=== PATIENT | male | born 1955 | race Two or more races ===

== ENCOUNTER 2017-02-07 13:24 | Outpatient (CLI) | payer BC ==
[~2017-02-07 13:24] MED LIST: ATOR40TA PO; METO25TA20 PO
== END 2017-02-07 23:59 | disposition home or self-care (01) ==
LOC: CARD 13:24
PROVIDERS: ATTEND Legal Medicine
DX: I65.23 Occlusion and stenosis of bilateral carotid arteries (principal)
CPT/HCPCS: 93880-TC

== ENCOUNTER 2017-03-28 09:01 | Outpatient (CLI) | payer BC ==
[2017-03-28] MEDS ORDERED: IOHEXOL-350 100 ML VIAL IV ONE (09:26)
[2017-03-28] MEDS ORDERED: CT SWABBABLE VALVE TRANS SET 1 EA INFUS.SET MC ONE (09:26)
[2017-03-28] MEDS ORDERED: IV NS 0.9% 500 ML IV ONE (09:26)
== END 2017-03-28 23:59 | disposition home or self-care (01) ==
LOC: CT 09:01
PROVIDERS: ATTEND Surgery Vascular Surgery
DX: I65.22 Occlusion and stenosis of left carotid artery (principal); E04.1 Nontoxic single thyroid nodule; I67.82 Cerebral ischemia; M50.30 Other cervical disc degeneration, unspecified cervical region; M48.02 Spinal stenosis, cervical region
CPT/HCPCS: 70496; 70498; J7040; Q9967

== ENCOUNTER 2017-06-01 14:35 | Outpatient (CLI) | payer BC ==
[2017-06-01 14:57] LABS: BASOPHILS # (AUTO) 0.1 /CMM (0.0-0.2); BASOPHILS % (AUTO) 0.8 % (0.0-2.0); EOSINOPHILS % (AUTO) 4.8 % (0.0-6.0); HEMATOCRIT 37 % (39-51); HEMOGLOBIN 12.7 g/dL (13.5-17.5); LYMPHOCYTES # (AUTO) 1.5 /CMM (0.8-4.8); LYMPHOCYTES % (AUTO) 23.8 % (20.0-44.0); MEAN CORPUSCULAR HGB CONC 34 g/dl (31.0-36.0); MEAN CORPUSCULAR VOLUME 84 fL (80-96); MONOCYTES # (AUTO) 0.5 /CMM (0.1-1.30); MONOCYTES % (AUTO) 8.2 % (2.0-12.0); NEUTROPHILS % (AUTO) 62.4 % (43.0-81.0); PLATELET COUNT (AUTO) 196 /CMM (150-450); RED BLOOD CELL COUNT(AUTO) 4.45 MIL/uL (4.5-6.0); WHITE BLOOD COUNT (AUTO) 6.4 K/uL (4.3-11.0)
[2017-06-01 14:59] LABS: APPEARANCE,URINE CLEAR (CLEAR); BILIRUBIN,URINE NEGATIVE (NEGATIVE); BLOOD, URINE NEGATIVE Ery/uL (NEGATIVE); COLOR,URINE YELLOW (YELLOW); KETONES,URINE NEGATIVE (NEGATIVE); LEUKOCYTE ESTERASE ,URINE NEGATIVE (NEGATIVE); NITRITE, URINE NEGATIVE (NEGATIVE); PH,URINE 6.5 (5.0-8.0); PROTEIN,URINE NEGATIVE (NEGATIVE); UGLUCOSE NEGATIVE (NEGATIVE); UROBILINOGEN,URINE 0.2 EU/dL (0.2)
[2017-06-01 15:12] LABS: CALCIUM, SERUM 8.3 mg/dL (8.5-10.1); CREATININE 0.9 mg/dL (0.6-1.3); POTASSIUM 4.1 mmol/L (3.5-5.1)
[2017-09-25] MEDS ORDERED: AMLO5TAB7 PO (08:42)
== END 2017-06-01 23:59 | disposition home or self-care (01) ==
LOC: LAB 14:35
PROVIDERS: ATTEND Legal Medicine
DX: Z01.818 Encounter for other preprocedural examination (principal); M47.894 Other spondylosis, thoracic region
CPT/HCPCS: 36415; 71046; 80048-TC; 81000-TC; 85025-TC

== ENCOUNTER 2017-06-08 05:48 | Inpatient (IN) | payer BC ==
[2017-06-08] VITALS (17 sets, daily range): BP systolic 111–188; BP diastolic 50–90
[~2017-06-08] VITALS: Ht 165.1 cm; Wt 64.4 kg
[2017-06-08] MEDS ORDERED: ANESTHESIA TRAY IN PYXIS 1 EA TRAY MC ONE (06:18)
--- NOTE | 2017-06-08 06:30 | NUR ---
PLZ SEE PRE OP ADMISSION DATA BASE ASSESMENT FOR MORE INFORMATION
[2017-06-08] MEDS ORDERED: NICARDIPINE IN DEXTROSE,ISO-OS 0 ML IV ONE (06:39)
[2017-06-08] MEDS ORDERED: MIDAZOLAM HCL 2 MG/2ML VIAL ONE (06:39)
[2017-06-08] MEDS ORDERED: FENTANYL PF 100MCG/2ML AMPUL ONE (06:39)
[2017-06-08] MEDS ORDERED: ROCURONIUM BROMIDE 50 MG/5 ML ONE ×2 (06:39→08:00)
[2017-06-08] MEDS ORDERED: HEPARIN SODIUM, PORCINE 1,000 UNIT/ML VIAL ONE (06:50)
[2017-06-08] MEDS ORDERED: BUPIVACAINE 0.25% 75 MG/30 ML VIAL ONE (06:50)
[2017-06-08] MEDS ORDERED: LIDOCAINE 1% INJ 50 ML MDV IJ ONE (06:50)
[2017-06-08] MEDS ORDERED: HEMOSTATIC MATRIX 10 ML 1 EACH PAD MC ONE (06:52)
[2017-06-08] MEDS ORDERED: CELLULOSE,OXIDIZED 1 EA PACK MC ONE ×2 (06:52→09:55)
[2017-06-08 07:12] LABS: INR 1.1 (0.87-1.13)
[2017-06-08] MEDS ORDERED: METF-440 PO (07:38)
[2017-06-08] MEDS ORDERED: ASPI-605 PO (07:38)
[2017-06-08] MEDS ORDERED: BACITRACIN 50000 UNITS/VIAL ONE (08:42)
[2017-06-08] MEDS ORDERED: THROMBIN (BOVINE) 5,000 UNITS VIAL TP ONE (09:49)
[2017-06-08] MEDS ORDERED: GELATIN SPONGE,ABSORBABLE 1 EA SPONGE TP ONE (09:50)
[2017-06-08] MEDS ORDERED: DEXAMETHASONE SOD PHOSPHATE 4 MG/ML VIAL ONE (11:01)
[2017-06-08] MEDS ORDERED: hydrALAZINE HCL IV 20 MG VIAL ONE (11:11)
[2017-06-08 11:40] LABS: BASOPHILS % (AUTO) 0.2 % (0.0-2.0); EOSINOPHILS % (AUTO) 0.5 % (0.0-6.0); HEMATOCRIT 36 % (39-51); HEMOGLOBIN 12.2 g/dL (13.5-17.5); LYMPHOCYTES # (AUTO) 0.7 /CMM (0.8-4.8); LYMPHOCYTES % (AUTO) 7.7 % (20.0-44.0); MEAN CORPUSCULAR HGB CONC 33 g/dl (31.0-36.0); MEAN CORPUSCULAR VOLUME 83 fL (80-96); MONOCYTES # (AUTO) 0.1 /CMM (0.1-1.30); MONOCYTES % (AUTO) 0.8 % (2.0-12.0); NEUTROPHILS % (AUTO) 90.8 % (43.0-81.0); PLATELET COUNT (AUTO) 186 /CMM (150-450); RDW COEFFICIENT OF VARIATION 14.3 (11.5-15.0); RED BLOOD CELL COUNT(AUTO) 4.37 MIL/uL (4.5-6.0); WHITE BLOOD COUNT (AUTO) 8.8 K/uL (4.3-11.0)
--- NOTE | 2017-06-08 11:45 | NUR ---
ICU/RN: Pt received from PACU, A&Ox4, breathing even and unlabored, no distress noted, no neuro deficits noted. Able to follow commands and demonstrates equal bilat upper and lower ext strength. RYLIE drain noted on L neck with serosanguineous output set to suction. R Radial A-line noted, zeroed and calibrated with good waveform noted. New IV HL inserted R Hand #20 x1 attempt. Pt c/o mild DOTY with elevated BP. Will manage with prn meds accordingly. Pt oriented to unit and POC, verbalized understanding. Will cont to monitor pt
[2017-06-08 11:51] LABS: CALCIUM, SERUM 7.7 mg/dL (8.5-10.1); CREATININE 0.8 mg/dL (0.6-1.3); MAGNESIUM 1.5 mg/dL (1.8-2.4); POTASSIUM 3.7 mmol/L (3.5-5.1)
[2017-06-08] MEDS: VALSARTAN 80 MG TABLET PO SCH (12:25)
[2017-06-08] MEDS ORDERED: ONDANSETRON HCL/PF 4 MG/2 ML VIAL IVP PRN (12:30)
[2017-06-08] MEDS ORDERED: hydrALAZINE HCL IV 20 MG VIAL IV PRN (12:30)
--- NOTE | 2017-06-08 12:30 | NUR ---
ICU/RN: S/B Dr Lane, with new orders noted and carried out. Pt voided 100cc dark yellow urine using urinal. Denies any discomfort.
[2017-06-08] MEDS ORDERED: DOCUSATE SODIUM 100 MG CAPSULE PO PRN (13:00)
[2017-06-08] MEDS ORDERED: ACETAMINOPHEN 325 MG TABLET PO PRN (13:00)
[2017-06-08] MEDS ORDERED: IV NS 0.9% 1,000 ML IV PRN (13:00)
[2017-06-08] MEDS ORDERED: INSULIN REGULAR, HUMAN 100 UNIT/ML 3 ML VIAL SQ PRN (13:30)
[2017-06-08] MEDS ORDERED: DEXTROSE 50%-WATER 50 ML DISP.SYRIN IV PRN (13:30)
[2017-06-08] MEDS: Magnesium 1GM/D5W 100ML PREMIX 100 ML IV SCH ×3 (14:16→16:59)
[2017-06-08] MEDS ORDERED: FENTANYL PF 100MCG/2ML AMPUL IV PRN (14:30)
[2017-06-08] MEDS: ASPIRIN 81 MG TAB.CHEW PO SCH (15:40)
[2017-06-08] MEDS: CEFAZOLIN IV SCH ×2 (16:12→23:32)
[2017-06-08] MEDS: METFORMIN 500 MG TABLET PO SCH (16:12)
[2017-06-08] MEDS: D5W IV SCH ×2 (16:12→23:32)
[2017-06-08] MEDS: BLOOD SUGAR DIAGNOSTIC 1 EACH STRIP IN SCH ×2 (17:14→21:46)
--- NOTE | 2017-06-08 17:20 | NUR ---
ICU/RN: Pt refused insulin SS coverage, per pt "I take Metformin at home. I can swallow the pills." Administered as ordered, pt swallowed meds without difficulty.
--- NOTE | 2017-06-08 19:30 | NUR ---
REAL ESTATE DIRECTOR: RECEIVED PT A/O X 3. ON S/P LT. CAROTID ENDARTERECTOMY. ON R/A WT NO ACUTE DISTRESS. NO C/O PAIN. LT. NECK DRESSING INTACT WT MINIMAL BLEED, RYLIE DRAIN IN PLACE WT SEROSANGUINEOUS DRAINAGE. SR ON REAGENT TENDER. ABLE TO VOID ON URINAL WT YELLOW COLORED URINE. A. LINE IN PLACE, LEVELED AND CALIBRATED WT POSITIONAL WAVEFORM. IV SITES SALINE LOCK WT NO S/S OF INFILTRATION. SON AT BEDSIDE. HOB AT 35 DEGREES. SAFETY PRECAUTION NOTED. WILL CONTINUE TO MONITOR.
[2017-06-08] MEDS: METOPROLOL TARTRATE 25 MG TABLET PO SCH (21:44)
[2017-06-09] VITALS (12 sets, daily range): BP systolic 110–160; BP diastolic 44–124
[2017-06-09] MEDS: HYDROCODONE/APAP 5/325MG 1 EACH TABLET PO PRN ×3 (02:12→14:12)
[2017-06-09 05:01] LABS: HEMATOCRIT 36 % (39-51); LYMPHOCYTES # (AUTO) 1.1 /CMM (0.8-4.8); LYMPHOCYTES % (AUTO) 6.7 % (20.0-44.0); MEAN CORPUSCULAR HGB CONC 34 g/dl (31.0-36.0); MEAN CORPUSCULAR VOLUME 84 fL (80-96); MONOCYTES # (AUTO) 1.3 /CMM (0.1-1.30); MONOCYTES % (AUTO) 7.6 % (2.0-12.0); NEUTROPHILS # (AUTO) 14.3 /CMM (1.8-8.9); NEUTROPHILS % (AUTO) 85.7 % (43.0-81.0); PLATELET COUNT (AUTO) 231 /CMM (150-450); RDW COEFFICIENT OF VARIATION 14.3 (11.5-15.0); RED BLOOD CELL COUNT(AUTO) 4.26 MIL/uL (4.5-6.0); WHITE BLOOD COUNT (AUTO) 16.7 K/uL (4.3-11.0)
[2017-06-09 05:08] LABS: CALCIUM, SERUM 7.8 mg/dL (8.5-10.1); CREATININE 0.9 mg/dL (0.6-1.3); MAGNESIUM 2.3 mg/dL (1.8-2.4); PHOSPHORUS 2.8 mg/dL (2.5-4.9); POTASSIUM 4.3 mmol/L (3.5-5.1)
[2017-06-09 05:12] LABS: INR 1.01 (0.87-1.13)
[2017-06-09] MEDS ORDERED: ENOXAPARIN SODIUM 40 MG/0.4 ML DISP.SYRIN SQ SCH (06:00)
--- NOTE | 2017-06-09 06:15 | NUR ---
WAISTBAND SETTER: NO SIGNIFICANT AMY DURING THE SHIFT. REMAINED A/O X 3. TOTAL RYLIE DRAIN [id number]. VS WITHIN HIS BASELINE. SAFETY PRECAUTION NOTED AT ALL TIMES.
[2017-06-09] MEDS: BLOOD SUGAR DIAGNOSTIC 1 EACH STRIP IN SCH ×3 (07:45→16:45)
[2017-06-09] MEDS: VALSARTAN 80 MG TABLET PO SCH (08:01)
[2017-06-09] MEDS: ASPIRIN 81 MG TAB.CHEW PO SCH (08:01)
[2017-06-09] MEDS: METOPROLOL TARTRATE 25 MG TABLET PO SCH (08:01)
[2017-06-09] MEDS: METFORMIN 500 MG TABLET PO SCH ×2 (08:02→16:45)
--- NOTE | 2017-06-09 08:05 | NUR ---
ICU/RN: Pt refused insulin sliding scale coverage, per pt "I take Metformin at home. I can swallow the pills." Administered as ordered, pt swallowed medications without difficulty.
--- NOTE | 2017-06-09 08:10 | NUR ---
ICU/RN - Notes Pt complains of left sided neck pain (surgical site) on pain scale 5 out of 10. Administered [place] 5/325 1 tab as ordered for PRN pain. Comfort measures in place. Will reassess pain accordingly.
[2017-06-09] MEDS ORDERED: ATORVASTATIN 40 MG TABLET PO SCH ×2 (09:00→22:00)
--- NOTE | 2017-06-09 10:51 | NUR ---
ICU/RN - Notes Pt cleared for Med Surg status per Dr Burton. A-line discontinued as ordered.
--- NOTE | 2017-06-09 11:10 | NUR ---
ICU/RN - Notes Pt transferred to [facility] 206-2 via wheelchair in stable condition. Report given to SHARMIN Villegas for continuity of care. All belongings taken with pt. Tremaine, son at bedside.
--- NOTE | 2017-06-09 11:15 | NUR ---
PATIENT ARRIVED TO UNIT AND PLACED IN ROOM 206-2. COURTNEY LI AT BEDSIDE
--- NOTE | 2017-06-09 11:50 | NUR ---
BLOOD SUGAR 138. PATIENT REFUSED INSULIN
--- NOTE | 2017-06-09 12:15 | NUR ---
PATHOLOGICAL TECHNICIAN NOTES PATIENT ARRIVED TO UNIT A WHEELCHAIR. NO SIGNS AND SYMPTOMS OF DISTRESS. DENIED PAIN. VITAL SIGNS WITHIN ACCEPTABLE LEVELS: BP 139/72, HR 59, O2 97%, TEMP 97.5 WILL CONTINUE TO MONITOR AND ASSESS PATIENT
--- NOTE | 2017-06-09 18:27 | NUR ---
FOAM MOLDER NOTES PATIENT IS DISCHARGED IN STABLE CONDITION. ALL NEEDS WERE MET. EXITCARE PROVIDED TO THE PATIENT. IV LINE WAS REMOVED. ID BAND WAS REMOVED. PATIENT HAS ALL BELONGINGS. PATIENT WAS ESCORTED OUT OF THE HOSPITAL BY RONAN CHURCHILL VIA WHEELCHAIR. PATIENT LEFT WITH SON GUILLERMO IN A PRIVATE CAR DISCHARGED HOME WITH SELF CARE. PRESCRIPTION GIVEN TO PATIENT. PATIENT ADVISED TO FOLLOW UP WITH DR. BOWSER IN 2 WEEKS AND TO FOLLOW UP WITH PRIMARY CARE PHYSICIAN WITHIN 2 WEEKS.
[2017-09-25] MEDS ORDERED: AMLO5TAB7 PO (08:42)
== END 2017-06-09 17:45 | disposition home or self-care (01) | DRG 39 ==
LOC: DS 05:48 → ICU 12:15 → MEDSG2 06-09 11:10
PROVIDERS: ADMIT Surgery Vascular Surgery; ATTEND Surgery Vascular Surgery
PROC: 03CL0ZZ Extirpation of Matter from Left Internal Carotid Artery, Open Approach (ICD-10-PCS; principal; 2017-06-08 07:00)
PROC: 03UL0JZ Supplement Left Internal Carotid Artery with Synthetic Substitute, Open Approach (ICD-10-PCS; principal; 2017-06-08 07:00)
PROC: 03HB33Z Insertion of Infusion Device into Right Radial Artery, Percutaneous Approach (ICD-10-PCS; principal; 2017-06-08 07:00)
DX: I65.22 Occlusion and stenosis of left carotid artery (principal); E11.9 Type 2 diabetes mellitus without complications; E78.5 Hyperlipidemia, unspecified; I10 Essential (primary) hypertension; Z86.73 Personal history of transient ischemic attack (TIA), and cerebral infarction without residual deficits; Z79.84 Long term (current) use of oral hypoglycemic drugs
CPT/HCPCS: 36415; 80048-TC; 82962-TC; 83735-TC; 84100-TC; 85025-TC; 85610-TC; 85730-TC; 87081-TC; 88304-TC; 88305-TC; 88311-TC; A6253; A6402; A6403; C1751; C1769; J0360; J0690; J1100; J1644; J1650; J1815; J2250; J2405; J2704; J2710; J3010; J3475; J3490; J7030; J7060; Z7610

== ENCOUNTER 2017-07-06 09:15 | Outpatient (CLI) | payer BC ==
[~2017-07-06 09:15] MED LIST changes: +ASPI-605 PO; +METF-440 PO
[2017-07-06] MEDS ORDERED: BARIUM SULFATE 98% 135 ML SUSP.RECON PO ONE (09:28)
[2017-07-06 10:31] LABS: APPEARANCE,URINE CLEAR (CLEAR); BILIRUBIN,URINE NEGATIVE (NEGATIVE); BLOOD, URINE TRACE-INTA Ery/uL (NEGATIVE); COLOR,URINE YELLOW (YELLOW); KETONES,URINE NEGATIVE (NEGATIVE); LEUKOCYTE ESTERASE ,URINE NEGATIVE (NEGATIVE); NITRITE, URINE NEGATIVE (NEGATIVE); PH,URINE 5.5 (5.0-8.0); PROTEIN,URINE NEGATIVE (NEGATIVE); UGLUCOSE NEGATIVE (NEGATIVE); UROBILINOGEN,URINE 0.2 EU/dL (0.2)
[2017-07-06 10:33] LABS: BACTERIA,URINE None seen /HPF (None Seen); RBC,URINE 0-2 /HPF (0-2); WBC,URINE NONE SEEN /HPF (0-3)
[2017-07-06 10:34] LABS: SQUAMOUS EPITHELIAL CELL,UR None Seen /HPF (None Seen)
[2017-07-06 10:51] LABS: ALBUMIN 3.9 g/dL (3.4-5.0); BILIRUBIN,TOTAL 0.7 mg/dL (0.2-1.0); CALCIUM, SERUM 9.2 mg/dL (8.5-10.1); CREATININE 0.9 mg/dL (0.6-1.3); POTASSIUM 4.1 mmol/L (3.5-5.1); TOTAL PROTEIN, SERUM 7.9 g/dL (6.4-8.2)
[2017-07-06 11:01] LABS: THYROID STIMULATING HORMONE 2.012 uIU/mL (0.358-3.74); URIC ACID 4.6 mg/dL (2.6-7.2)
[2017-07-06 13:22] LABS: BASOPHILS % (AUTO) 0.5 % (0.0-2.0); EOSINOPHILS % (AUTO) 4.9 % (0.0-6.0); HEMATOCRIT 37 % (39-51); HEMOGLOBIN 12.1 g/dL (13.5-17.5); LYMPHOCYTES % (AUTO) 18.3 % (20.0-44.0); MEAN CORPUSCULAR HGB CONC 33 g/dl (31.0-36.0); MEAN CORPUSCULAR VOLUME 84 fL (80-96); MONOCYTES # (AUTO) 0.4 /CMM (0.1-1.30); MONOCYTES % (AUTO) 6.9 % (2.0-12.0); NEUTROPHILS # (AUTO) 3.8 /CMM (1.8-8.9); NEUTROPHILS % (AUTO) 69.4 % (43.0-81.0); PLATELET COUNT (AUTO) 247 /CMM (150-450); RDW COEFFICIENT OF VARIATION 14.6 (11.5-15.0); RED BLOOD CELL COUNT(AUTO) 4.34 MIL/uL (4.5-6.0); WHITE BLOOD COUNT (AUTO) 5.5 K/uL (4.3-11.0)
[2017-07-09 11:44] LABS: MAGNESIUM 2.1 mg/dL (1.8-2.4); PHOSPHORUS 3.4 mg/dL (2.5-4.9)
[2017-09-25] MEDS ORDERED: AMLO5TAB7 PO (08:42)
== END 2017-07-06 23:59 | disposition home or self-care (01) ==
LOC: RAD 09:15
PROVIDERS: ATTEND Legal Medicine
DX: I10 Essential (primary) hypertension (principal); E11.9 Type 2 diabetes mellitus without complications; R06.02 Shortness of breath; R13.10 Dysphagia, unspecified
CPT/HCPCS: 36415; 71046; 74230-TC; 80053-TC; 80061-TC; 81000-TC; 83735-TC; 84100-TC; 84443-TC; 84550-TC; 85025-TC

== ENCOUNTER 2017-09-25 06:20 | Emergency (ER) | payer BC ==
[~2017-09-25] VITALS: Ht 165.1 cm; Wt 61.7 kg
[~2017-09-25 06:20] MED LIST changes: -METF-440 PO; +METF500T6 PO
--- NOTE | 2017-09-25 06:36 | NUR ---
PT BB COWORKERS C/C OF NOSEBLEED AT 0545. PT IS AAOX4. PT DENIES HAVING ANY PAIN. PT DENIES N/V, -DIZZINESS,-BLURRED VISSION. PT ABLE TO MOVE ALL EXTREMITIES FREELY AND STATES EQUAL SENSATIONS BILATERALLY. SKIN WNL. RESP EVEN AND UNLABORED. NO S/S OF ACUTE DISTRESS NOTED. PT PLACED ON PYTHON WEB DEVELOPER AND POX. PT SAFETY AND COMFORT MEASURES IN PLACE. AWAITING MD FOR EVAL. PT'S COWORKERS BEDSIDE.
--- NOTE | 2017-09-25 07:15 | NUR ---
RECIEVED PT TO ED BED 05. A/OX3. NAD VSS RR EVEN AND UNLABORED. VSS WILL CONT TO MONITOR
[2017-09-25 07:24] LABS: BASOPHILS % (AUTO) 0.7 % (0.0-2.0); EOSINOPHILS % (AUTO) 4.3 % (0.0-6.0); HEMATOCRIT 40 % (39-51); HEMOGLOBIN 13.1 g/dL (13.5-17.5); LYMPHOCYTES % (AUTO) 17.8 % (20.0-44.0); MEAN CORPUSCULAR HEMOGLOBIN 28 PG (26.0-33.0); MEAN CORPUSCULAR HGB CONC 32 g/dl (31.0-36.0); MEAN CORPUSCULAR VOLUME 85 fL (80-96); MONOCYTES # (AUTO) 0.4 /CMM (0.1-1.30); MONOCYTES % (AUTO) 8.1 % (2.0-12.0); NEUTROPHILS # (AUTO) 3.8 /CMM (1.8-8.9); NEUTROPHILS % (AUTO) 69.1 % (43.0-81.0); PLATELET COUNT (AUTO) 222 /CMM (150-450); RDW COEFFICIENT OF VARIATION 16.9 (11.5-15.0); RED BLOOD CELL COUNT(AUTO) 4.75 MIL/uL (4.5-6.0); WHITE BLOOD COUNT (AUTO) 5.4 K/uL (4.3-11.0)
[2017-09-25 07:35] LABS: CALCIUM, SERUM 9.3 mg/dL (8.5-10.1); CARBON DIOXIDE 25 mmol/L (21-32); CHLORIDE 105 mmol/L (98-107); GLUCOSE 138 mg/dL (74-106); SODIUM SERUM 140 mmol/L (136-145); UREA NITROGEN, BLOOD 18 mg/dL (7-18)
[2017-09-25 07:39] LABS: INR 0.97 (0.87-1.13)
[2017-09-25 07:40] LABS: ALANINE AMINOTRANSFERASE 59 U/L (12-78); ALBUMIN 4.1 g/dL (3.4-5.0); ALKALINE PHOSPHATASE 115 U/L (46-116); ASPARTATE AMINOTRANSFERASE 53 U/L (15-37); BILIRUBIN,DIRECT 0.1 mg/dL (0.0-0.2); BILIRUBIN,TOTAL 0.8 mg/dL (0.2-1.0); TOTAL PROTEIN, SERUM 8.5 g/dL (6.4-8.2)
[2017-09-25 07:43] LABS: TROPONIN I < 0.017 ng/mL (0.00-0.056)
[2017-09-25] MEDS ORDERED: IOHEXOL-350 100 ML VIAL IV ONE (07:54)
[2017-09-25] MEDS ORDERED: CT SWABBABLE VALVE TRANS SET 1 EA INFUS.SET MC ONE (07:54)
[2017-09-25] MEDS ORDERED: IV NS 0.9% 250 ML IV ONE (07:54)
--- NOTE | 2017-09-25 08:05 | NUR ---
PT TAKEN TO CT SCAN
[2017-09-25 08:22] LABS: CHOLESTEROL 81 mg/dL (<200); HDL CHOLESTEROL 37 mg/dL (40-60); LDL 38 mg/dL (0-99); TRIGLYCERIDES 74 mg/dL (30-150)
[2017-09-25] MEDS ORDERED: METO-357 PO (08:42)
[2017-09-25] MEDS ORDERED: AMLO5TAB2 PO (08:42)
[2017-09-25] MEDS ORDERED: CLOP75TA15 PO (08:42)
[2017-09-25] MEDS ORDERED: LISI40TA4 PO (08:42)
--- NOTE | 2017-09-25 09:32 | NUR ---
PAGED DR COCHRAN
--- NOTE | 2017-09-25 09:53 | NUR ---
CALLED NIELS WILL CALL BACK IN 30 MIN
--- NOTE | 2017-09-25 11:24 | NUR ---
JEFE (1986) FROM [employer] ASKING TO FAX PT'S CARD TO [facility] TO [place]-[phone]. PT DOES NOT HAVE HIS INSURANCE CARD WITH HIM AT THIS TIME. JEFE NOTIFIED.
--- NOTE | 2017-09-25 13:57 | NUR ---
PER JEFE (1957) FROM [employer], WE ARE WAITING FOR [facility] TO CALL US BACK WHEN A BED IS AVAILABLE.
--- NOTE | 2017-09-25 15:09 | NUR ---
CALL FROM [facility], PATIENT GOING TO [facility] DIRECT ADMIT BUT NEEDS TO PASS BY ER. REPORT TO [phone].
--- NOTE | 2017-09-25 15:11 | NUR ---
CALLED [facility] FOR TRANSPORT ETA OF 6400 WAS GIVEN. TRIP#[id number]
--- NOTE | 2017-09-25 15:25 | NUR ---
REPORT GIVEN TO SANDOR FINNEY FOR TRANSFER OF CARE. [phone] GOING TO [address] [place] [address]. ROOM 2402 ACCEPTING MD: DR COCHRAN
--- NOTE | 2017-09-25 16:34 | NUR ---
[facility] TRANSPORT AT BEDSIDE TO COOK MANAGER THE PATIENT. PT DISCHARGED TO [facility][id number]. LEFT IN STABLE CONDITION
[2017-09-25 16:38] VITALS: BP 151/66
== END 2017-09-25 16:59 | disposition short-term general hospital (02) ==
LOC: ER 06:28
DX: I65.22 Occlusion and stenosis of left carotid artery (principal); I10 Essential (primary) hypertension; E11.9 Type 2 diabetes mellitus without complications; Z90.49 Acquired absence of other specified parts of digestive tract; Z86.73 Personal history of transient ischemic attack (TIA), and cerebral infarction without residual deficits; Z79.82 Long term (current) use of aspirin
CPT/HCPCS: 36415; 70496; 70498; 71045; 80048; 80061; 80076; 84484; 85025; 85730; 93005; 99285; A4606; J7050; Q9967; Z7610

== ENCOUNTER 2018-09-09 08:02 | Outpatient (CLI) | payer BC ==
[~2018-09-09 08:02] MED LIST changes: +AMLO5TAB9 PO; +CLOP75TA15 PO; +LISI40TA4 PO; +METF-440 PO; -METF500T6 PO; +METO-357 PO; -METO25TA20 PO
[2018-09-09 09:12] LABS: BILIRUBIN,TOTAL 0.8 mg/dL (0.2-1.0); CALCIUM, SERUM 9.1 mg/dL (8.5-10.1); CREATININE 0.9 mg/dL (0.6-1.3); POTASSIUM 4.4 mmol/L (3.5-5.1); TOTAL PROTEIN, SERUM 8.4 g/dL (6.4-8.2)
[2018-09-09 09:18] LABS: APPEARANCE,URINE CLEAR (CLEAR); BILIRUBIN,URINE NEGATIVE (NEGATIVE); BLOOD, URINE TRACE Ery/uL (NEGATIVE); COLOR,URINE YELLOW (YELLOW); KETONES,URINE NEGATIVE (NEGATIVE); LEUKOCYTE ESTERASE ,URINE NEGATIVE (NEGATIVE); NITRITE, URINE NEGATIVE (NEGATIVE); PH,URINE 5.5 (5.0-8.0); PROTEIN,URINE NEGATIVE (NEGATIVE); UGLUCOSE NEGATIVE (NEGATIVE); UROBILINOGEN,URINE 0.2 EU/dL (0.2)
[2018-09-09 09:22] LABS: PROSTATE SPECIFIC ANTIGEN SCR 0.64 ng/mL (0.00-4.00); THYROID STIMULATING HORMONE 2.542 uIU/mL (0.358-3.74); URIC ACID 5.2 mg/dL (2.6-7.2)
[2018-09-09 09:34] LABS: BASOPHILS % (AUTO) 0.8 % (0.0-2.0); EOSINOPHILS % (AUTO) 4.3 % (0.0-6.0); HEMATOCRIT 36 % (39-51); HEMOGLOBIN 11.4 g/dL (13.5-17.5); LYMPHOCYTES # (AUTO) 1.2 /CMM (0.8-4.8); LYMPHOCYTES % (AUTO) 22.4 % (20.0-44.0); MEAN CORPUSCULAR HGB CONC 32 g/dl (31.0-36.0); MEAN CORPUSCULAR VOLUME 83 fL (80-96); MONOCYTES # (AUTO) 0.5 /CMM (0.1-1.30); MONOCYTES % (AUTO) 9.7 % (2.0-12.0); NEUTROPHILS # (AUTO) 3.3 /CMM (1.8-8.9); NEUTROPHILS % (AUTO) 62.8 % (43.0-81.0); PLATELET COUNT (AUTO) 225 /CMM (150-450); WHITE BLOOD COUNT (AUTO) 5.3 K/uL (4.3-11.0)
[2018-09-09 09:44] LABS: BACTERIA,URINE None seen /HPF (None Seen); RBC,URINE 0-2 /HPF (0-2); SQUAMOUS EPITHELIAL CELL,UR 0-2 /HPF (None Seen); WBC,URINE 0-2 /HPF (0-3)
[2018-09-10 12:06] LABS: FOLIC ACID 9.8 ng/mL (>3.0)
== END 2018-09-09 23:59 | disposition home or self-care (01) ==
LOC: LAB 08:02
PROVIDERS: ATTEND Legal Medicine
DX: Z00.00 Encounter for general adult medical examination without abnormal findings (principal); E11.22 Type 2 diabetes mellitus with diabetic chronic kidney disease; I12.9 Hypertensive chronic kidney disease with stage 1 through stage 4 chronic kidney disease, or unspecified chronic kidney disease; N18.9 Chronic kidney disease, unspecified; D64.9 Anemia, unspecified; E55.9 Vitamin D deficiency, unspecified; E03.9 Hypothyroidism, unspecified; N40.0 Benign prostatic hyperplasia without lower urinary tract symptoms
CPT/HCPCS: 36415; 80053-TC; 80061-TC; 81000-TC; 82306; 82728-TC; 83540-TC; 84153-TC; 84402; 84403; 84439-TC; 84443-TC; 84550-TC; 85025-TC

== ENCOUNTER 2020-12-09 07:42 | Outpatient (CLI) | payer BC ==
[~2020-12-09 07:42] MED LIST changes: +AMLO-212 PO; -AMLO5TAB9 PO; +LISI40TA13 PO; -LISI40TA4 PO
[2020-12-09 09:20] LABS: BASOPHILS % (AUTO) 0.9 % (0.0-2.0); EOSINOPHILS % (AUTO) 3.7 % (0.0-6.0); HEMATOCRIT 39 % (39-51); HEMOGLOBIN 12.5 g/dL (13.5-17.5); LYMPHOCYTES # (AUTO) 0.8 K/uL (0.8-4.8); LYMPHOCYTES % (AUTO) 14.6 % (20.0-44.0); MEAN CORPUSCULAR HGB CONC 32 g/dl (31.0-36.0); MEAN CORPUSCULAR VOLUME 82 fL (80-96); MONOCYTES # (AUTO) 0.5 K/uL (0.1-1.30); MONOCYTES % (AUTO) 9.8 % (2.0-12.0); NEUTROPHILS # (AUTO) 3.7 K/uL (1.8-8.9); PLATELET COUNT (AUTO) 167 K/uL (150-450); RED BLOOD CELL COUNT(AUTO) 4.77 MIL/uL (4.5-6.0); WHITE BLOOD COUNT (AUTO) 5.2 K/uL (4.3-11.0)
[2020-12-09 09:21] LABS: BILIRUBIN,URINE NEGATIVE (NEGATIVE); COLOR,URINE YELLOW (YELLOW); LEUKOCYTE ESTERASE ,URINE TRACE (NEGATIVE); NITRITE, URINE NEGATIVE (NEGATIVE); PH,URINE 5.5 (5.0-8.0); PROTEIN,URINE NEGATIVE (NEGATIVE); UGLUCOSE NEGATIVE (NEGATIVE); UROBILINOGEN,URINE 0.2 EU/dL (0.2)
[2020-12-09 09:27] LABS: BACTERIA,URINE None seen /HPF (None Seen); RBC,URINE 0-2 /HPF (0-2); SQUAMOUS EPITHELIAL CELL,UR Rare /HPF (None Seen); WBC,URINE 0-2 /HPF (0-3)
[2020-12-09 10:22] LABS: ALBUMIN 3.7 g/dL (3.4-5.0); BILIRUBIN,TOTAL 0.7 mg/dL (0.2-1.0); CALCIUM, SERUM 8.7 mg/dL (8.5-10.1); POTASSIUM 4.5 mmol/L (3.5-5.1)
[2020-12-09 10:34] LABS: PROSTATE SPECIFIC ANTIGEN SCR 0.67 ng/mL (0.00-4.00); THYROID STIMULATING HORMONE 1.663 uIU/mL (0.358-3.74)
[2020-12-09 11:02] LABS: CHOLESTEROL 127 mg/dL (<200); HDL CHOLESTEROL 40 mg/dL (40-60); LDL 77 mg/dL (0-99); TRIGLYCERIDES 78 mg/dL (30-150)
== END 2020-12-09 23:59 | disposition home or self-care (01) ==
LOC: LAB 07:42
PROVIDERS: ATTEND Legal Medicine
DX: I10 Essential (primary) hypertension (principal); E11.9 Type 2 diabetes mellitus without complications; E78.5 Hyperlipidemia, unspecified; N40.0 Benign prostatic hyperplasia without lower urinary tract symptoms; Z00.00 Encounter for general adult medical examination without abnormal findings
CPT/HCPCS: 36415; 80053-TC; 80061-TC; 81001; 82306; 82607-TC; 82728-TC; 83540-TC; 84153-TC; 84402-TC; 84439-TC; 84443-TC; 84550-TC; 85025-TC

== ENCOUNTER 2022-05-04 07:22 | Outpatient (CLI) | payer BC ==
[2022-05-04 09:20] LABS: BILIRUBIN,URINE NEGATIVE (NEGATIVE); COLOR,URINE YELLOW (YELLOW); LEUKOCYTE ESTERASE ,URINE NEGATIVE (NEGATIVE); NITRITE, URINE NEGATIVE (NEGATIVE); PROTEIN,URINE TRACE mg/dl (NEGATIVE); UGLUCOSE NEGATIVE (NEGATIVE); UROBILINOGEN,URINE 0.2 EU/dL (0.2)
[2022-05-04 09:24] LABS: BASOPHILS % (AUTO) 0.7 % (0.0-2.0); HEMATOCRIT 27 % (39-51); HEMOGLOBIN 8.2 g/dL (13.5-17.5); LYMPHOCYTES # (AUTO) 0.8 K/uL (0.8-4.8); LYMPHOCYTES % (AUTO) 20.4 % (20.0-44.0); MEAN CORPUSCULAR HGB CONC 30 g/dl (31.0-36.0); MEAN CORPUSCULAR VOLUME 70 fL (80-96); MONOCYTES # (AUTO) 0.3 K/uL (0.1-1.30); MONOCYTES % (AUTO) 8.9 % (2.0-12.0); NEUTROPHILS # (AUTO) 2.5 K/uL (1.8-8.9); PLATELET COUNT (AUTO) 221 K/uL (150-450); RED BLOOD CELL COUNT(AUTO) 3.89 MIL/uL (4.5-6.0); WHITE BLOOD COUNT (AUTO) 3.9 K/uL (4.3-11.0)
[2022-05-04 09:39] LABS: BACTERIA,URINE None seen /HPF (None Seen); RBC,URINE NONE SEEN /HPF (0-2); SQUAMOUS EPITHELIAL CELL,UR None Seen /HPF (None Seen); WBC,URINE NONE SEEN /HPF (0-3)
[2022-05-04 09:40] LABS: MUCUS,URINE Rare /LPF (None Seen)
[2022-05-04 09:51] LABS: ALANINE AMINOTRANSFERASE 38 U/L (12-78); ALBUMIN 3.7 g/dL (3.4-5.0); ALKALINE PHOSPHATASE 104 U/L (46-116); ASPARTATE AMINOTRANSFERASE 43 U/L (15-37); BILIRUBIN,TOTAL 0.5 mg/dL (0.2-1.0); CALCIUM, SERUM 9.1 mg/dL (8.5-10.1); CARBON DIOXIDE 27 mmol/L (21-32); CHLORIDE 107 mmol/L (98-107); GLUCOSE 129 mg/dL (74-106); POTASSIUM 4.4 mmol/L (3.5-5.1); SODIUM SERUM 140 mmol/L (136-145); TOTAL PROTEIN, SERUM 7.5 g/dL (6.4-8.2); UREA NITROGEN, BLOOD 18 mg/dL (7-18)
[2022-05-04 10:22] LABS: THYROID STIMULATING HORMONE 3.418 uIU/mL (0.358-3.74); URIC ACID 6.4 mg/dL (2.6-7.2)
[2022-05-04 17:04] LABS: EOSINOPHILS % (MANUAL) 2 % (0-4); LYMPHOCYTES % (MANUAL) 21 % (16-48); MONOCYTES % (MANUAL) 14 % (0-11.0); NEUTROPHILS % (MANUAL) 63 (42-76)
[2022-05-04 18:53] LABS: CHOLESTEROL 114 mg/dL (<200); HDL CHOLESTEROL 34 mg/dL (40-60); LDL 77 mg/dL (0-99); TRIGLYCERIDES 87 mg/dL (30-150)
[2022-05-05 07:58] LABS: IRON, SERUM 16 ug/dl (50-175); TOTAL IRON BINDING CAPACITY 482 ug/dl (250-450)
== END 2022-05-04 23:59 | disposition home or self-care (01) ==
LOC: LAB 07:22
PROVIDERS: ATTEND Legal Medicine
DX: Z00.00 Encounter for general adult medical examination without abnormal findings (principal); E11.9 Type 2 diabetes mellitus without complications; N40.0 Benign prostatic hyperplasia without lower urinary tract symptoms; E55.9 Vitamin D deficiency, unspecified; E59 Dietary selenium deficiency; E03.9 Hypothyroidism, unspecified
CPT/HCPCS: 36415; 80053-TC; 80061-TC; 81001; 82306; 82607-TC; 83540-TC; 84153-TC; 84402; 84403; 84443-TC; 84550-TC; 85025-TC

== ENCOUNTER 2022-12-21 09:45 | Inpatient (IN) | payer BC ==
[2022-12-21] VITALS (19 sets, daily range): BP systolic 91–154; BP diastolic 46–89; TEMP 95–98.4; O2SAT 98–100
[~2022-12-21] VITALS: Ht 165.1 cm; Wt 64.4 kg
[2022-12-21] MEDS ORDERED: METF-440 PO (10:30)
[2022-12-21] MEDS ORDERED: ASPI-1420 PO (10:30)
[2022-12-21] MEDS ORDERED: DOPamine 400 MG in IV D5W 250 ML IV PRN (10:30)
[2022-12-21] MEDS ORDERED: VALS160T2 PO (10:30)
[2022-12-21] MEDS ORDERED: METO-358 PO (10:30)
[2022-12-21] MEDS ORDERED: PROPOFOL 100 ML ONE (10:36)
[2022-12-21] MEDS ORDERED: DOPamine 400MG/D5W 250ML RTU 250 ML ONE (10:36)
[2022-12-21 10:45] LABS: ALANINE AMINOTRANSFERASE 116 U/L (12-78); ALBUMIN 3.4 g/dL (3.4-5.0); ALKALINE PHOSPHATASE 172 U/L (46-116); ASPARTATE AMINOTRANSFERASE 144 U/L (15-37); BILIRUBIN,DIRECT 0.1 mg/dL (0.0-0.2); BILIRUBIN,TOTAL 0.4 mg/dL (0.2-1.0); CALCIUM, SERUM 9.3 mg/dL (8.5-10.1); CARBON DIOXIDE 16 mmol/L (21-32); CHLORIDE 101 mmol/L (98-107); CREATININE 2.3 mg/dL (0.6-1.3); GLUCOSE 328 mg/dL (74-106); SODIUM SERUM 136 mmol/L (136-145); TOTAL PROTEIN, SERUM 7.5 g/dL (6.4-8.2); UREA NITROGEN, BLOOD 31 mg/dL (7-18)
[2022-12-21 10:58] LABS: BASOPHILS % (AUTO) 0.3 % (0.0-2.0); EOSINOPHILS % (AUTO) 0.1 % (0.0-6.0); HEMATOCRIT 36 % (39-51); HEMOGLOBIN 11.4 g/dL (13.5-17.5); LYMPHOCYTES # (AUTO) 0.9 K/uL (0.8-4.8); LYMPHOCYTES % (AUTO) 7.9 % (20.0-44.0); MEAN CORPUSCULAR HEMOGLOBIN 30 PG (26.0-33.0); MEAN CORPUSCULAR HGB CONC 32 g/dl (31.0-36.0); MEAN CORPUSCULAR VOLUME 93 fL (80-96); MONOCYTES # (AUTO) 0.4 K/uL (0.1-1.30); MONOCYTES % (AUTO) 3.7 % (2.0-12.0); NEUTROPHILS # (AUTO) 9.7 K/uL (1.8-8.9); PLATELET COUNT (AUTO) 325 K/uL (150-450); RED BLOOD CELL COUNT(AUTO) 3.87 MIL/uL (4.5-6.0); RED CELL DISTRIBUTION WIDTH 14.7 % (11.5-15.0); WHITE BLOOD COUNT (AUTO) 11.1 K/uL (4.3-11.0)
[2022-12-21] MEDS ORDERED: PROPOFOL 100 ML IV ONE (11:00)
[2022-12-21] MEDS ORDERED: IODIXANOL 150 ML IV ONE (11:01)
[2022-12-21] MEDS ORDERED: LIDOCAINE HCL/MPF 1% 30 ML VIAL IJ ONE (11:01)
[2022-12-21 11:08] LABS: INR 1.08 (0.91-1.10); PARTIAL THROMBOPLASTIN TIME 23.9 SEC (24.3-34.3); PROTHROMBIN TIME 11.4 SECS (9.2-11.1)
[2022-12-21] MEDS ORDERED: IV NS 0.9% 1,000 ML ONE (11:23)
[2022-12-21] MEDS ORDERED: SUCCINYLCHOLINE CHLORIDE 20 MG/ML VIAL IV ONE (12:10)
[2022-12-21] MEDS ORDERED: PROPOFOL 200 MG/20 ML VIAL IV ONE (12:10)
[2022-12-21 13:39] LABS: ABG BASE EXCESS -10.2 mmol/L; ABG OXYGEN SATURATION 99.4 % (92.0-98.5); ABG PCO2 30.4 mmHg (35.0-45.0); ABG PH 7.308 (7.350-7.450); ABG PO2 253.9 mmHg (75.0-100.0); ABG TOTAL HEMOGLOBIN 11.8 G/dL (13.5-18.0); AaDO2 140.5 mmHg; COHb 0.3 % (0.5-1.5); MetHb 0.3 % (0.0-1.5); O2Hb 98.8 % (94.0-97.0); SITE, ABG Right Radial; VENT MODE, BG AC 14 550 60% +5
[2022-12-21] MEDS: IV D5/0.45 NACL 1,000 ML IV PRN (14:29)
[2022-12-21] MEDS ORDERED: Z GUARD REMEDY 4 OZ OINT TP PRN (14:30)
[2022-12-21] MEDS ORDERED: INSULIN REGULAR, HUMAN 100 UNIT/ML 3 ML VIAL SQ PRN (14:30)
[2022-12-21] MEDS ORDERED: ONDANSETRON HCL/PF 4 MG/2 ML VIAL IVP PRN (14:30)
[2022-12-21] MEDS ORDERED: DEXTROSE 50%-WATER 50 ML DISP.SYRIN IV PRN ×2 (14:30→15:00)
[2022-12-21] MEDS: PROPOFOL 100 ML IV PRN ×2 (14:34→22:00)
[2022-12-21] MEDS: LOSARTAN POTASSIUM 50 MG TABLET PO SCH (15:12)
[2022-12-21 16:28] LABS: THYROID STIMULATING HORMONE 5.324 uIU/mL (0.358-3.74)
[2022-12-21] MEDS ORDERED: METFORMIN 500 MG TABLET PO SCH (17:00)
[2022-12-21] MEDS ORDERED: BLOOD SUGAR DIAGNOSTIC 1 EACH STRIP IN SCH ×2 (17:30→18:00)
[2022-12-21] MEDS: INSULIN REGULAR, HUMAN 100 UNIT/ML 3 ML VIAL SQ PRN (17:46)
[2022-12-21] MEDS: BLOOD SUGAR DIAGNOSTIC 1 EACH STRIP IN SCH (17:46)
[2022-12-21] MEDS: METOPROLOL TARTRATE 50 MG TABLET PO SCH (21:00)
[2022-12-21] MEDS: ATORVASTATIN 40 MG TABLET PO SCH (21:09)
[2022-12-21] MEDS: ENOXAPARIN SODIUM 30 MG/0.3 ML DISP.SYRIN SQ SCH (21:10)
[2022-12-22] VITALS (38 sets, daily range): BP systolic 89–142; BP diastolic 46–101; TEMP 98.4–99.5; O2SAT 98–100
[2022-12-22] MEDS: BLOOD SUGAR DIAGNOSTIC 1 EACH STRIP IN SCH ×4 (00:29→17:51)
[2022-12-22] MEDS: INSULIN REGULAR, HUMAN 100 UNIT/ML 3 ML VIAL SQ PRN ×4 (00:37→17:52)
[2022-12-22] MEDS: PROPOFOL 100 ML IV PRN ×4 (02:01→21:00)
[2022-12-22 04:52] LABS: BASOPHILS % (AUTO) 0.3 % (0.0-2.0); HEMATOCRIT 31 % (39-51); HEMOGLOBIN 10.5 g/dL (13.5-17.5); LYMPHOCYTES # (AUTO) 0.8 K/uL (0.8-4.8); LYMPHOCYTES % (AUTO) 8.2 % (20.0-44.0); MEAN CORPUSCULAR HEMOGLOBIN 31 PG (26.0-33.0); MEAN CORPUSCULAR HGB CONC 34 g/dl (31.0-36.0); MEAN CORPUSCULAR VOLUME 90 fL (80-96); MONOCYTES # (AUTO) 0.8 K/uL (0.1-1.30); MONOCYTES % (AUTO) 7.7 % (2.0-12.0); NEUTROPHILS # (AUTO) 8.6 K/uL (1.8-8.9); NEUTROPHILS % (AUTO) 83.8 % (43.0-81.0); PLATELET COUNT (AUTO) 195 K/uL (150-450); WHITE BLOOD COUNT (AUTO) 10.2 K/uL (4.3-11.0)
[2022-12-22 04:59] LABS: CALCIUM, SERUM 8.4 mg/dL (8.5-10.1); CREATININE 1.4 mg/dL (0.6-1.3); MAGNESIUM 1.9 mg/dL (1.8-2.4); PHOSPHORUS 2.5 mg/dL (2.5-4.9); POTASSIUM 4.5 mmol/L (3.5-5.1)
[2022-12-22] MEDS: IV D5/0.45 NACL 1,000 ML IV PRN (05:00)
[2022-12-22 05:20] LABS: ABG BASE EXCESS -2.2 mmol/L; ABG OXYGEN SATURATION 97.9 % (92.0-98.5); ABG PCO2 31.1 mmHg (35.0-45.0); ABG PH 7.448 (7.350-7.450); ABG PO2 112.6 mmHg (75.0-100.0); ABG TOTAL HEMOGLOBIN 11.5 G/dL (13.5-18.0); AaDO2 136.8 mmHg; COHb 0.3 % (0.5-1.5); MetHb 0.5 % (0.0-1.5); O2Hb 97.1 % (94.0-97.0); SITE, ABG Right Radial
[2022-12-22] MEDS: PANTOPRAZOLE 40 MG VIAL IV SCH (08:14)
[2022-12-22] MEDS: LOSARTAN POTASSIUM 50 MG TABLET PO SCH (08:15)
[2022-12-22] MEDS: CLOPIDOGREL BISULFATE 75 MG TABLET PO SCH (08:15)
[2022-12-22] MEDS: ASPIRIN EC 81 MG TABLET.DR PO SCH (08:15)
[2022-12-22] MEDS: METOPROLOL TARTRATE 50 MG TABLET PO SCH (08:16)
[2022-12-22 13:11] LABS: URINE TOTAL PROTEIN 13.7 mg/dL (0-11.9)
[2022-12-22] MEDS: IV D5/ 0.9% NACL 1,000 ML IV PRN (13:11)
[2022-12-22 13:23] LABS: APPEARANCE,URINE CLEAR (CLEAR); BILIRUBIN,URINE NEGATIVE (NEGATIVE); BLOOD, URINE 3+ Ery/uL (NEGATIVE); COLOR,URINE YELLOW (YELLOW); KETONES,URINE NEGATIVE (NEGATIVE); LEUKOCYTE ESTERASE ,URINE NEGATIVE (NEGATIVE); NITRITE, URINE NEGATIVE (NEGATIVE); PH,URINE 5.5 (5.0-8.0); PROTEIN,URINE NEGATIVE (NEGATIVE); UGLUCOSE NEGATIVE (NEGATIVE); UROBILINOGEN,URINE 0.2 EU/dL (0.2)
[2022-12-22 13:36] LABS: ADD URINE CULTURE NO; BACTERIA,URINE 1+ /HPF (None Seen); WBC,URINE NONE SEEN /HPF (0-3)
[2022-12-22 13:39] LABS: EOSINOPHIL,URINE None Seen
[2022-12-22] MEDS: ENOXAPARIN SODIUM 30 MG/0.3 ML DISP.SYRIN SQ SCH (21:00)
[2022-12-22] MEDS: ATORVASTATIN 40 MG TABLET PO SCH (21:45)
[2022-12-23] VITALS (26 sets, daily range): BP systolic 104–184; BP diastolic 54–158; TEMP 97.9–98.6; O2SAT 97–100
[2022-12-23] MEDS: BLOOD SUGAR DIAGNOSTIC 1 EACH STRIP IN SCH ×4 (00:37→19:12)
[2022-12-23] MEDS: INSULIN REGULAR, HUMAN 100 UNIT/ML 3 ML VIAL SQ PRN ×3 (00:50→19:13)
[2022-12-23] MEDS: PROPOFOL 100 ML IV PRN (03:02)
[2022-12-23] MEDS: IV D5/ 0.9% NACL 1,000 ML IV PRN ×2 (03:02→17:13)
[2022-12-23 05:20] LABS: ABG BASE EXCESS -1.4 mmol/L; ABG OXYGEN SATURATION 97.8 % (92.0-98.5); ABG PCO2 28.6 mmHg (35.0-45.0); ABG PH 7.485 (7.350-7.450); ABG PO2 103.7 mmHg (75.0-100.0); ABG TOTAL HEMOGLOBIN 11.6 G/dL (13.5-18.0); AaDO2 112.6 mmHg; COHb 0.3 % (0.5-1.5); MetHb 0.2 % (0.0-1.5); O2Hb 97.3 % (94.0-97.0); PEEP,BG 0 cm H2O; SITE, ABG Right Radial; VT, ABG 550 mL
[2022-12-23 05:58] LABS: BASOPHILS % (AUTO) 0.2 % (0.0-2.0); EOSINOPHILS % (AUTO) 0.1 % (0.0-6.0); HEMATOCRIT 32 % (39-51); HEMOGLOBIN 10.7 g/dL (13.5-17.5); LYMPHOCYTES # (AUTO) 0.7 K/uL (0.8-4.8); LYMPHOCYTES % (AUTO) 9.5 % (20.0-44.0); MEAN CORPUSCULAR HEMOGLOBIN 31 PG (26.0-33.0); MEAN CORPUSCULAR HGB CONC 33 g/dl (31.0-36.0); MEAN CORPUSCULAR VOLUME 91 fL (80-96); MONOCYTES # (AUTO) 0.7 K/uL (0.1-1.30); MONOCYTES % (AUTO) 9.3 % (2.0-12.0); NEUTROPHILS # (AUTO) 5.7 K/uL (1.8-8.9); NEUTROPHILS % (AUTO) 80.9 % (43.0-81.0); PLATELET COUNT (AUTO) 161 K/uL (150-450); RED BLOOD CELL COUNT(AUTO) 3.49 MIL/uL (4.5-6.0); RED CELL DISTRIBUTION WIDTH 14.1 % (11.5-15.0)
[2022-12-23 06:24] LABS: ALBUMIN 2.4 g/dL (3.4-5.0); BILIRUBIN,TOTAL 0.4 mg/dL (0.2-1.0); CALCIUM, SERUM 8.6 mg/dL (8.5-10.1); CREATININE 0.9 mg/dL (0.6-1.3); MAGNESIUM 1.9 mg/dL (1.8-2.4); PHOSPHORUS 1.9 mg/dL (2.5-4.9); TOTAL PROTEIN, SERUM 6.2 g/dL (6.4-8.2)
[2022-12-23] MEDS ORDERED: ANESTHESIA TRAY IN PYXIS 1 EA TRAY MC ONE (06:55)
[2022-12-23] MEDS ORDERED: LIDOCAINE 1% INJ 50 ML MDV IJ ONE (06:55)
[2022-12-23] MEDS ORDERED: MIDAZOLAM HCL 2 MG/2ML VIAL ONE (07:07)
[2022-12-23] MEDS ORDERED: FENTANYL PF 100MCG/2ML AMPUL ONE (07:07)
[2022-12-23] MEDS: ASPIRIN EC 81 MG TABLET.DR PO SCH (09:43)
[2022-12-23] MEDS: PANTOPRAZOLE 40 MG VIAL IV SCH (09:45)
[2022-12-23] MEDS: LOSARTAN POTASSIUM 50 MG TABLET PO SCH (09:45)
[2022-12-23] MEDS: CLOPIDOGREL BISULFATE 75 MG TABLET PO SCH (09:48)
[2022-12-23] MEDS: hydrALAZINE HCL IV 20 MG VIAL IV PRN (13:33)
[2022-12-23] MEDS: POTASSIUM PHOSPHATE MM 7.5 MMOL in IV NS 0.9% 100 ML IV SCH ×2 (18:51→22:21)
[2022-12-23] MEDS: ATORVASTATIN 40 MG TABLET PO SCH (21:12)
[2022-12-23] MEDS: ENOXAPARIN SODIUM 30 MG/0.3 ML DISP.SYRIN SQ SCH (21:13)
[2022-12-23] MEDS: ACETAMINOPHEN 325 MG TABLET PO PRN (22:39)
[2022-12-24] VITALS (22 sets, daily range): BP systolic 126–186; BP diastolic 51–89; TEMP 98.2–98.8; O2SAT 89–98
[2022-12-24] MEDS: BLOOD SUGAR DIAGNOSTIC 1 EACH STRIP IN SCH ×5 (00:35→23:18)
[2022-12-24] MEDS: INSULIN REGULAR, HUMAN 100 UNIT/ML 3 ML VIAL SQ PRN ×5 (00:36→23:18)
[2022-12-24] MEDS: hydrALAZINE HCL IV 20 MG VIAL IV PRN ×3 (03:04→16:55)
[2022-12-24] MEDS: IV D5/ 0.9% NACL 1,000 ML IV PRN ×2 (05:02→22:30)
[2022-12-24] MEDS: ACETAMINOPHEN 325 MG TABLET PO PRN ×2 (05:05→16:18)
[2022-12-24] MEDS: PANTOPRAZOLE 40 MG VIAL IV SCH (08:55)
[2022-12-24] MEDS: LOSARTAN POTASSIUM 50 MG TABLET PO SCH (08:55)
[2022-12-24] MEDS: CLOPIDOGREL BISULFATE 75 MG TABLET PO SCH (08:55)
[2022-12-24] MEDS: ASPIRIN EC 81 MG TABLET.DR PO SCH (08:55)
[2022-12-24] MEDS: AMLODIPINE BESYLATE 5 MG TABLET PO SCH (09:26)
[2022-12-24] MEDS: MORPHINE SULFATE INJ 2 MG/ML DISP.SYRIN IV PRN ×2 (09:49→21:29)
[2022-12-24] MEDS: ENOXAPARIN SODIUM 30 MG/0.3 ML DISP.SYRIN SQ SCH (21:29)
[2022-12-24] MEDS: ATORVASTATIN 40 MG TABLET PO SCH (21:29)
[2022-12-25] MEDS: INSULIN REGULAR, HUMAN 100 UNIT/ML 3 ML VIAL SQ PRN ×3 (05:21→17:23)
[2022-12-25] MEDS: BLOOD SUGAR DIAGNOSTIC 1 EACH STRIP IN SCH ×3 (05:21→17:23)
[2022-12-25 05:41] LABS: BASOPHILS % (AUTO) 0.7 % (0.0-2.0); EOSINOPHILS # (AUTO) 0.1 K/uL (0.0-0.7); EOSINOPHILS % (AUTO) 2.2 % (0.0-6.0); HEMATOCRIT 29 % (39-51); HEMOGLOBIN 9.5 g/dL (13.5-17.5); LYMPHOCYTES # (AUTO) 0.5 K/uL (0.8-4.8); LYMPHOCYTES % (AUTO) 10.8 % (20.0-44.0); MEAN CORPUSCULAR HEMOGLOBIN 30 PG (26.0-33.0); MEAN CORPUSCULAR HGB CONC 33 g/dl (31.0-36.0); MEAN CORPUSCULAR VOLUME 91 fL (80-96); MONOCYTES # (AUTO) 0.5 K/uL (0.1-1.30); MONOCYTES % (AUTO) 10.5 % (2.0-12.0); NEUTROPHILS # (AUTO) 3.5 K/uL (1.8-8.9); NEUTROPHILS % (AUTO) 75.8 % (43.0-81.0); PLATELET COUNT (AUTO) 160 K/uL (150-450); RED BLOOD CELL COUNT(AUTO) 3.14 MIL/uL (4.5-6.0); RED CELL DISTRIBUTION WIDTH 13.8 % (11.5-15.0); WHITE BLOOD COUNT (AUTO) 4.6 K/uL (4.3-11.0)
[2022-12-25 06:02] LABS: ALBUMIN 2.3 g/dL (3.4-5.0); BILIRUBIN,TOTAL 0.7 mg/dL (0.2-1.0); CALCIUM, SERUM 8.5 mg/dL (8.5-10.1); CREATININE 0.8 mg/dL (0.6-1.3); MAGNESIUM 1.6 mg/dL (1.8-2.4); PHOSPHORUS 2.5 mg/dL (2.5-4.9); POTASSIUM 3.6 mmol/L (3.5-5.1); TOTAL PROTEIN, SERUM 6.1 g/dL (6.4-8.2)
[2022-12-25] MEDS: ACETAMINOPHEN 325 MG TABLET PO PRN ×3 (07:10→16:38)
[2022-12-25] MEDS: hydrALAZINE HCL IV 20 MG VIAL IV PRN (07:15)
[2022-12-25 07:30] VITALS: BP 143/54; TEMP 98.2; O2SAT 96
[2022-12-25] MEDS: CLOPIDOGREL BISULFATE 75 MG TABLET PO SCH (08:39)
[2022-12-25] MEDS: ASPIRIN EC 81 MG TABLET.DR PO SCH (08:39)
[2022-12-25] MEDS: PANTOPRAZOLE 40 MG TABLET.DR PO SCH (08:39)
[2022-12-25] MEDS: AMLODIPINE BESYLATE 5 MG TABLET PO SCH (08:42)
[2022-12-25] MEDS: LOSARTAN POTASSIUM 50 MG TABLET PO SCH (08:42)
[2022-12-25] MEDS ORDERED: MAGNESIUM OXIDE 400 MG TABLET PO ONE (10:00)
[2022-12-25] MEDS: ERYTHROMYCIN BASE OPHTH 3.5 GM TUBE EACHEYE SCH ×2 (14:47→22:00)
[2022-12-25 16:00] VITALS: BP 133/66; TEMP 98.8; O2SAT 96
[2022-12-25 20:00] VITALS: BP 181/73; TEMP 98.2; O2SAT 93
[2022-12-25] MEDS: ATORVASTATIN 40 MG TABLET PO SCH (21:56)
[2022-12-25] MEDS: ENOXAPARIN SODIUM 30 MG/0.3 ML DISP.SYRIN SQ SCH (21:59)
[2022-12-26] MEDS: BLOOD SUGAR DIAGNOSTIC 1 EACH STRIP IN SCH ×2 (00:35→06:31)
[2022-12-26] MEDS: INSULIN REGULAR, HUMAN 100 UNIT/ML 3 ML VIAL SQ PRN ×2 (00:40→12:22)
[2022-12-26 08:00] VITALS: BP 151/73; TEMP 99; O2SAT 97
[2022-12-26] MEDS: PANTOPRAZOLE 40 MG TABLET.DR PO SCH (08:43)
[2022-12-26] MEDS: CLOPIDOGREL BISULFATE 75 MG TABLET PO SCH (08:43)
[2022-12-26] MEDS: AMLODIPINE BESYLATE 5 MG TABLET PO SCH (08:43)
[2022-12-26] MEDS: ASPIRIN EC 81 MG TABLET.DR PO SCH (08:43)
[2022-12-26 08:44] VITALS: BP 151/73
[2022-12-26] MEDS: LOSARTAN POTASSIUM 50 MG TABLET PO SCH (08:44)
[2022-12-26] MEDS: ERYTHROMYCIN BASE OPHTH 3.5 GM TUBE EACHEYE SCH (08:48)
[2022-12-26] MEDS ORDERED: ERYT3.5O9 EACHEYE (11:38)
[2022-12-26] MEDS ORDERED: AMLO-212 PO (11:38)
== END 2022-12-26 12:15 | disposition home or self-care (01) | DRG 242 ==
LOC: ER 09:45 → ICU 10:59 → MED 12-24 18:33
PROVIDERS: ATTEND Internal Medicine
PROC: 5A1945Z Respiratory Ventilation, 24-96 Consecutive Hours (ICD-10-PCS; principal; 2022-12-21)
PROC: 5A1223Z Performance of Cardiac Pacing, Continuous (ICD-10-PCS; 2022-12-21)
PROC: 0BH18EZ Insertion of Endotracheal Airway into Trachea, Via Natural or Artificial Opening Endoscopic (ICD-10-PCS; 2022-12-21)
PROC: 0JH606Z Insertion of Pacemaker, Dual Chamber into Chest Subcutaneous Tissue and Fascia, Open Approach (ICD-10-PCS; 2022-12-23)
PROC: 02H63JZ Insertion of Pacemaker Lead into Right Atrium, Percutaneous Approach (ICD-10-PCS; 2022-12-23)
PROC: 02PA3MZ Removal of Cardiac Lead from Heart, Percutaneous Approach (ICD-10-PCS; 2022-12-23)
PROC: 02HK3JZ Insertion of Pacemaker Lead into Right Ventricle, Percutaneous Approach (ICD-10-PCS; 2022-12-23)
DX: I44.2 Atrioventricular block, complete (principal); J96.01 Acute respiratory failure with hypoxia; K72.00 Acute and subacute hepatic failure without coma; N17.9 Acute kidney failure, unspecified; E87.1 Hypo-osmolality and hyponatremia; J98.11 Atelectasis; Z86.73 Personal history of transient ischemic attack (TIA), and cerebral infarction without residual deficits; E11.9 Type 2 diabetes mellitus without complications; D64.9 Anemia, unspecified; D72.829 Elevated white blood cell count, unspecified; E78.5 Hyperlipidemia, unspecified; E86.9 Volume depletion, unspecified; H10.9 Unspecified conjunctivitis; I10 Essential (primary) hypertension; I25.10 Atherosclerotic heart disease of native coronary artery without angina pectoris; Z79.4 Long term (current) use of insulin; Z82.3 Family history of stroke; Z82.49 Family history of ischemic heart disease and other diseases of the circulatory system; R53.1 Weakness; Z87.891 Personal history of nicotine dependence; R74.01 Elevation of levels of liver transaminase levels; I49.5 Sick sinus syndrome; E88.9 Metabolic disorder, unspecified; R55 Syncope and collapse; Z79.84 Long term (current) use of oral hypoglycemic drugs
CPT/HCPCS: 31720; 33211; 36415; 36600; 71045-TC; 76770-TC; 80048-TC; 80053-TC; 80061-TC; 80076-TC; 81001; 82570-TC; 82803-TC; 82962-TC; 83735-TC; 84100-TC; 84300-TC; 84443-TC; 84484-TC; 85025-TC; 85730-TC; 93307-TC; 94002-TC; 94003-TC; 94799-TC; 99082-TC; A4223; C1785; C9113; G0378; J0330; J0360; J1265; J1644; J1650; J1815; J2250; J2270; J2704; J3010; J3490; J7030; J7040; J7042; J7050; Q9967

== ENCOUNTER 2023-04-09 12:04 | Emergency (ER) | payer BC, OTHER ==
[~2023-04-09] VITALS: Ht 165.1 cm; Wt 67.6 kg
[~2023-04-09 12:04] MED LIST changes: +ASPI-1420 PO; -ASPI-605 PO; +ERYT3.5O9 EACHEYE; -LISI40TA13 PO; -METO-357 PO; +VALS160T2 PO
[2023-04-09] MEDS: FUROSEMIDE 40 MG/4 ML VIAL IV ONE (13:00)
[2023-04-09] MEDS ORDERED: FURO-145 PO (13:27)
[2023-04-09 13:30] LABS: BASOPHILS # (AUTO) 0.1 K/uL (0.0-0.2); EOSINOPHILS # (AUTO) 0.2 K/uL (0.0-0.7); EOSINOPHILS % (AUTO) 3.9 % (0.0-6.0); HEMATOCRIT 25 % (39-51); HEMOGLOBIN 7.1 g/dL (13.5-17.5); LYMPHOCYTES # (AUTO) 0.9 K/uL (0.8-4.8); LYMPHOCYTES % (AUTO) 15.4 % (20.0-44.0); MEAN CORPUSCULAR HEMOGLOBIN 23 PG (26.0-33.0); MEAN CORPUSCULAR HGB CONC 29 g/dl (31.0-36.0); MEAN CORPUSCULAR VOLUME 79 fL (80-96); MONOCYTES # (AUTO) 0.8 K/uL (0.1-1.30); MONOCYTES % (AUTO) 13.3 % (2.0-12.0); NEUTROPHILS % (AUTO) 66.4 % (43.0-81.0); PLATELET COUNT (AUTO) 193 K/uL (150-450); RED BLOOD CELL COUNT(AUTO) 3.12 MIL/uL (4.5-6.0); RED CELL DISTRIBUTION WIDTH 25.4 % (11.5-15.0)
[2023-04-09] MEDS ORDERED: FUROSEMIDE 40 MG/4 ML VIAL ONE (13:38)
[2023-04-09 13:43] LABS: CALCIUM, SERUM 9.1 mg/dL (8.5-10.1); CARBON DIOXIDE 25 mmol/L (21-32); CHLORIDE 102 mmol/L (98-107); CREATININE 0.9 mg/dL (0.6-1.3); GLUCOSE 107 mg/dL (74-106); POTASSIUM 3.5 mmol/L (3.5-5.1); SODIUM SERUM 137 mmol/L (136-145); UREA NITROGEN, BLOOD 13 mg/dL (7-18)
[2023-04-09 13:56] LABS: NT-PRO BNP 289 pg/mL (0-125)
[2023-04-09 14:20] VITALS: BP 125/68; TEMP 98; O2SAT 97
== END 2023-04-09 14:21 | disposition home or self-care (01) ==
LOC: ER 12:04
DX: R60.0 Localized edema (principal); I10 Essential (primary) hypertension; E11.9 Type 2 diabetes mellitus without complications; Z79.82 Long term (current) use of aspirin; Z79.899 Other long term (current) drug therapy; Z98.890 Other specified postprocedural states
CPT/HCPCS: 99284; 96374; 93005; 85025; 80048; 36415; 84484; 83880; J1940